=== PATIENT | female | born 1985 | race Caucasian/White ===

== ENCOUNTER 2018-01-31 10:09 | Inpatient (IN) | payer OTHER ==
[2018-01-31] MEDS ORDERED: OXYTOCIN 10 UNIT/ML 1 ML VIAL IM ONE (10:26)
[2018-01-31] MEDS ORDERED: ZOLPIDEM 5 MG TAB PO PRN (10:33)
[2018-01-31] MEDS ORDERED: LANOLIN CREAM 5 GM TUBE TOPICAL PRN (10:33)
[2018-01-31] MEDS ORDERED: SIMETHICONE 80 MG CHEWABLE PO PRN (10:33)
[2018-01-31] MEDS ORDERED: diphenhydrAMINE 25 MG CAP PO PRN (10:33)
[2018-01-31] MEDS ORDERED: WITCH HAZEL 1 EACH MED..PAD TOPICAL PRN (10:33)
[2018-01-31] MEDS ORDERED: ACETAMINOPHEN TAB 325 MG TAB PO PRN (10:33)
[2018-01-31] MEDS ORDERED: diphenhydrAMINE 50 MG CAP PO PRN (10:33)
[2018-01-31] MEDS ORDERED: HYDROCORTISONE 2.5% RECTAL CREAM 30 GM TUBE RECTAL PRN (10:33)
[2018-01-31] MEDS ORDERED: BENZOCAINE/MENTHOL SPRAY 1 GM/SPRAY AEROSOL TOPICAL PRN (10:33)
[2018-01-31] MEDS ORDERED: diphenhydrAMINE 50 MG/ML 1 ML VIAL IVP PRN ×2 (10:33)
--- NOTE | 2018-01-31 10:39 | P.HPOB ---
History of Present Illness H&P Date: 01/31/18 Chief Complaint: Active labor This is a 32-year-old at 39-4/7 weeks with an estimated due date of 7 based on last menstrual period consistent with an 8 week ultrasound. Patient was receiving routine care with Dr. Araujo. Patient presented to labor and delivery with complaints of contractions she soon after delivery, within minutes patient stated baby is out baby was noted in the bed with amniotic sac intact. On blood work patient had a blood type of A+, rubella immune, RPR nonreactive, hepatitis B surface antigen negative, HIV negative, she did pass her 1 hour Glucola with a level of 1:15 and group beta strep culture was noted to be positive. Review of Systems Constitutional: Denies chills, Denies fatigue, Denies fever Ears, nose, mouth and throat: Reports headache Cardiovascular: Reports leg edema Respiratory: Denies cough, Denies dyspnea Gastrointestinal: Denies constipation, Denies diarrhea, Denies nausea, Denies vomiting Genitourinary: Reports Exam Osteopathic Statement: *. No significant issues noted on an osteopathic structural exam other than those noted in the History and Physical/Consult. - OBG Physical Exam Abdomen: Gravid and appropriate for gestational age Cervix: Completely dilated at the time of admission, infant delivered with an amniotic sac ruptured soon afterwards Uterus: enlarged Assessment and Plan (1) Term Current Visit: Yes Status: Acute Code(s): Z34.80 - ENCOUNTER FOR SUPRVSN OF NORMAL , UNSP TRIMESTER SNOMED Code(s): 96230067 (2) Positive GBS test Current Visit: Yes Status: Acute Code(s): B95.1 - STREPTOCOCCUS, GROUP B, CAUSING DISEASES [facility] SNOMED Code(s): 6928867625725 (3) Precipitous delivery Current Visit: Yes Status: Acute Code(s): O62.3 - PRECIPITATE LABOR SNOMED Code(s): 385069631 Plan: The patient admitted to labor and delivery for routine care
[2018-01-31] MEDS: IBUPROFEN 600 MG TAB PO PRN ×3 (11:03→22:40)
[2018-01-31 11:28] VITALS: BMI 46.0
[2018-01-31] MEDS: SENNOSIDES-DOCUSATE SODIUM 1 EACH TAB PO SCH (20:55)
[2018-02-01] MEDS: IBUPROFEN 600 MG TAB PO PRN ×3 (06:29→17:57)
[2018-02-01 06:54] LABS: HGB 12.5 gm/dL (11.4-16.0); MCH 30.4 pg (25.0-35.0); MCHC 32.8 g/dL (31.0-37.0); MCV 92.6 fL (80.0-100.0); Mean Platelet Volume 8.8; Platelet Count 213 k/uL (150-450); RDW 13.7 % (11.5-15.5); WBC 11.6 k/uL (3.8-10.6)
[2018-02-01 07:15] LABS: Eosinophils # (M) 0.23 k/uL (0-0.7); Lymphocytes # (M) 1.74 k/uL (1.0-4.8); Monocytes # (M) 0.58 k/uL (0-1.0); Neutrophils # (M) 9.05 k/uL (1.3-7.7); Neutrophils % (M) 78 %; Nucleated Red Blood Cells 0 /100 WBC (0-0); Total Cells Counted 100
[2018-02-01 07:16] LABS: Large Platelets Present; Reactive Lymphocytes Present
--- NOTE | 2018-02-01 09:32 | P.PNOBGVD ---
Subjective - Subjective Principal diagnosis: PPD 1 Interval history: Patient is doing well . She is ambulating and voiding without difficulty. She is tolerating a regular diet without nausea or vomiting. She states her pain is controlled with oral ibuprofen. Infant is currently in the nursery for low temps. Patient reports: Reports appetite normal, Reports voiding normally, Reports pain well controlled, Reports ambulating normally [place]: doing well (In the nursery.) Objective - Latest Vital Signs Latest vital signs: Vital Signs Temp Pulse Resp BP BP Pulse Ox 02/01/18 07:50 16 02/01/18 07:47 98.2 F 64 16 119/64 100 01/31/18 23:53 98.6 F 82 16 126/71 01/31/18 20:00 98.6 F 73 18 128/74 01/31/18 16:00 98.3 F 86 18 118/68 01/31/18 13:15 98.9 F 90 18 123/87 01/31/18 12:35 85 135/69 01/31/18 12:05 97.9 F 80 18 117/57 01/31/18 11:35 98.1 F 86 18 123/77 01/31/18 11:20 77 119/69 01/31/18 11:05 97.3 F L 72 18 122/64 01/31/18 10:50 97.6 F 68 18 117/74 01/31/18 10:35 97.2 F L 71 18 119/72 01/31/18 10:15 97.5 F L 70 18 117/63 Intake and Output 01/31/18 02/01/18 02/01/18 22:59 06:59 14:59 Intake Total 8 Balance 8 Intake: Oral 8 Other: Voiding Method Toilet # Voids 1 - Exam Extremities: Present: normal Abdomen: Present: normal appearance, soft Uterus: Present: normal, firm - Labs Labs: Abnormal Lab Results - Last 24 Hours (Table) 02/01/18 Range/Units 06:19 WBC 11.6 H (3.8-10.6) k/uL Neutrophils # (Manual) 9.05 H (1.3-7.7) k/uL Assessment and Plan (1) Term Current Visit: Yes Status: Acute Code(s): Z34.80 - ENCOUNTER FOR SUPRVSN OF NORMAL , UNSP TRIMESTER SNOMED Code(s): 71487914 (2) Positive GBS test Current Visit: Yes Status: Acute Code(s): B95.1 - STREPTOCOCCUS, GROUP B, CAUSING DISEASES [facility]SD [facility] SNOMED Code(s): 8854785276906 (3) Precipitous delivery Current Visit: Yes Status: Acute Code(s): O62.3 - PRECIPITATE LABOR SNOMED Code(s): 942709642 Plan: We'll continue routine care.
[2018-02-01] MEDS: SENNOSIDES-DOCUSATE SODIUM 1 EACH TAB PO SCH ×2 (12:07→20:06)
[2018-02-01 23:49] VITALS: RESP 16
[2018-02-02] MEDS: IBUPROFEN 600 MG TAB PO PRN ×2 (00:53→07:57)
[2018-02-02 07:55] VITALS: BP 116/72; PULSE 71; TEMP 98
[2018-02-02] MEDS: SENNOSIDES-DOCUSATE SODIUM 1 EACH TAB PO SCH (07:55)
--- NOTE | 2018-02-02 08:16 | P.DS ---
Providers Date of admission: 01/31/18 10:19 Expected date of discharge: 02/02/18 Attending physician: Dakota Saez Primary care physician: Stated None - Discharge Diagnosis(es) (1) Term Current Visit: Yes Status: Acute (2) Positive GBS test Current Visit: Yes Status: Acute (3) Precipitous delivery Current Visit: Yes Status: Acute Hospital Course: This is a very pleasant 32-year-old 3 para 2000 at 39-4/7 weeks that presented to labor and delivery completely dilated and had a precipitous delivery of a viable female at 1016, weight of 6 lbs. 9 oz., Apgars of 9 and 9 at one and 5 minutes respectively. Patient's post course has been uneventful. On this day #2 she is ambulating and voiding without difficulty. She is tolerating a regular diet without nausea or vomiting. She denies concerns and wishes discharge home. Patient Condition at Discharge: Good Plan - Discharge Summary New Discharge Prescriptions: No Action Pnv No.95/Ferrous Fum/Folic AC [ Multivitamin Tablet] 1 each PO DAILY Discharge Medication List Pnv No.95/Ferrous Fum/Folic AC [ Multivitamin Tablet] 1 each PO DAILY [History] Follow up Appointment(s)/Referral(s): Dakota Saez MD [STAFF PHYSICIAN] - 6 Weeks Patient Instructions/Handouts: Vaginal Delivery (DC), Vaginal Delivery (GEN) Discharge Disposition: HOME SELF-CARE
== END 2018-02-02 14:35 | disposition home or self-care (01) | DRG 807 ==
LOC: FBPOP 10:09 → 4FBP 10:19
PROVIDERS: ADMIT Obstetrics & Gynecology Obstetrics; ATTEND Obstetrics & Gynecology
PROC: 10E0XZZ Delivery of Products of Conception, External Approach (ICD-10-PCS; principal; 2018-01-31)
DX: O62.3 Precipitate labor (principal); Z37.0 Single live birth; O99.824 Streptococcus B carrier state complicating childbirth; Z3A.39 39 weeks gestation of pregnancy
CPT/HCPCS: 85025

== ENCOUNTER → 2018-03-26 | Outpatient (CLI) | payer OTHER ==
[2018-03-26 14:13] LABS: HCT 41.5 % (34.0-46.0); HGB 13.5 gm/dL (11.4-16.0); MCHC 32.5 g/dL (31.0-37.0); MCV 92.3 fL (80.0-100.0); Mean Platelet Volume 7.5; Platelet Count 267 k/uL (150-450); RDW 13.1 % (11.5-15.5); WBC 6.9 k/uL (3.8-10.6)
[2018-03-26 14:49] LABS: Lymphocytes # (M) 1.17 k/uL (1.0-4.8); Monocytes # (M) 0.21 k/uL (0-1.0); Neutrophils # (M) 5.52 k/uL (1.3-7.7); Neutrophils % (M) 80 %; Nucleated Red Blood Cells 0 /100 WBC (0-0); Total Cells Counted 100; Toxic Granulation Present
[2018-03-26 19:03] LABS: Albumin 4.7 g/dL (3.80-4.90); Albumin/Globulin Ratio 2.04 (1.20-2.10); Anion Gap 7.8 mmol/L (4.00-12.00); Calcium 10.1 mg/dL (8.7-10.3); Carbon Dioxide 29.2 mmol/L (21.6-31.8); Globulin 2.3 g/dL (2.1-3.7); Potassium 4.9 mmol/L (3.5-5.5); Total Bilirubin 0.8 mg/dL (0.3-1.2)
== END ==
LOC: LABWHC1 13:03
PROVIDERS: ATTEND Internal Medicine Gastroenterology
DX: R17 Unspecified jaundice (principal)
CPT/HCPCS: 36415; 80053; 85025

== ENCOUNTER → 2021-06-09 | Outpatient (CLI) | payer OTHER ==
--- NOTE | 2021-06-09 07:58 | US ---
EXAMINATION TYPE: US gallbladder DATE OF EXAM: 06/09/2021 COMPARISON: NONE CLINICAL HISTORY: R10.11 RUQ Abd pain. h/o Gb issues 3 years ago, now RUQ pain is coming back EXAM MEASUREMENTS: Liver Length: 15.5 cm Gallbladder Wall: 0.2 cm CBD: 0.6 cm Right Kidney: 10.5 x 4.5 x 4.5 cm Pancreas: wnl Liver: wnl Gallbladder: possible anterior wall polyp Evidence for sonographic Avalos's sign: no CBD: wnl Right Kidney: wnl IMPRESSION: I cannot exclude a small polyp. Otherwise unremarkable study.
== END | disposition home or self-care (01) ==
LOC: RADUSWWP 07:34
PROVIDERS: ATTEND Family Medicine
DX: R10.11 Right upper quadrant pain (principal)
CPT/HCPCS: 76705